=== PATIENT | female | born 2000 | race Caucasian/White ===

== ENCOUNTER 2021-05-18 21:28 | Emergency (ER) | payer SELFPAY ==
[2021-05-19] MEDS ORDERED: EPIPEN 2-P0.3 MG/0.3 IM (00:46)
== END 2021-05-19 01:13 | disposition home or self-care (01) ==
LOC: FER 21:28
DX: T78.40XA Allergy, unspecified, initial encounter (principal); X58.XXXA Exposure to other specified factors, initial encounter
CPT/HCPCS: 96372; J0171; J1200